=== PATIENT | female | born 1940 | race Caucasian/White ===

== ENCOUNTER 2019-06-23 12:44 | Emergency (ER) | payer BC, MEDICARE ==
[2019-06-23] MEDS ORDERED: Aspirin 81 MG Tab.Chew PO ONE (14:21)
--- NOTE | 2019-06-23 14:25 | EDM.PDOC ---
ED HPI GENERAL MEDICAL PROBLEM - General Chief Complaint: Chest Pain Stated Complaint: CHEST PAIN Time Seen by Provider: 06/23/19 14:15 Source of Information: Reports: Patient, Family, RN Notes Reviewed History Limitations: Reports: No Limitations - History of Present Illness INITIAL COMMENTS - FREE TEXT/NARRATIVE: 78-year-old female presents emergency department today with complaint of chest heaviness, she states started about an hour and a half prior rates the pain may be a 2 out of 10 no diaphoresis no nausea vomiting no shortness of breath. She has no cardiac history no history of tobacco use, past medical history only significant for hypertension controlled Chest Pain Score (Numeric/FACES): 4 - Related Data Allergies Allergy/AdvReac Type Severity Reaction Status Date / Time Penicillins Allergy Severe Anaphylactic Verified 06/23/19 13:23 Shock propoxyphene [From Darvon] Allergy Severe Anaphylactic Verified 06/23/19 13:23 Shock adhesive tape Allergy Rash Verified 06/23/19 13:23 cephalexin [From Keflex] Allergy Other Verified 06/23/19 13:23 metronidazole Allergy Rash Verified 06/23/19 13:23 Sulfa (Sulfonamide Allergy Rash Verified 06/23/19 13:23 Antibiotics) polyethylene glycol AdvReac Nausea and Verified 06/23/19 13:23 [From Golytely] Vomiting polyethylene glycol 3350 AdvReac Nausea and Verified 06/23/19 13:23 [From Golytely] Vomiting potassium chloride AdvReac Nausea and Verified 06/23/19 13:23 [From Golytely] Vomiting sodium [From Golytely] AdvReac Nausea and Verified 06/23/19 13:23 Vomiting sodium bicarbonate AdvReac Nausea and Verified 06/23/19 13:23 [From Golytely] Vomiting sodium chloride AdvReac Nausea and Verified 06/23/19 13:23 [From Golytely] Vomiting sodium sulfate AdvReac Nausea and Verified 06/23/19 13:23 [From Golytely] Vomiting Home Meds: Home Meds Ascorbic Acid [Vitamin C] 500 ng PO DAILY 08/09/16 [History] Aspirin [Adult Low Dose Aspirin EC] 81 mg PO DAILY 08/09/16 [History] Cholecalciferol (Vitamin D3) [Vitamin D3] 1 cap PO DAILY 08/09/16 [History] Gluc/Howard-Msm#2/C/D3/Serafin/Born [[id number]] 1 tab PO DAILY 08/09 [History] Ibuprofen 200 mg PO ASDIRECTED 08/09/16 [History] Loratadine [Claritin] 10 mg PO DAILY 08/09/16 [History] Melatonin 3 mg PO BEDTIME 08/09/16 [History] Multivitamin [Multivitamins] 1 tab PO DAILY 08/09/16 [History] Propranolol [Inderal] 40 mg PO BID 08/09/16 [History] Sour Evans Extract [Tart Evans Extract] 1 tab PO DAILY 08/09/16 [History] Vitamin B Complex [B Complex] 1 tab PO DAILY 08/09/16 [History] Famotidine [Pepcid AC] 20 mg PO ASDIRECTED 11/12/16 [History] hydroCHLOROthiazide [Hydrochlorothiazide] 25 mg PO DAILY 06/23/19 [History] Past Medical History HEENT History: Reports: Impaired Vision Other HEENT History: seasonal allergies Cardiovascular History: Reports: Hypertension Gastrointestinal History: Reports: Bowel Obstruction Genitourinary History: Reports: Chronic Renal Insuffiency Other Genitourinary History: stage 3 [employer] History: Reports: Prolapsed Uterus Oncologic (Cancer) History: Reports: Colon - Infectious Disease History Infectious Disease History: Reports: C-Difficile, Chicken Pox Other Infectious Disease History: surgical incision 8 years ago - Past Surgical History GI Surgical History: Reports: Appendectomy, Cholecystectomy, Colon, Colonoscopy , Hernia Repair/Other, Other (See Below) Other GI Surgeries/Procedures: tumor Female Surgical History: Reports: Hysterectomy Social & Family History - Tobacco Use Smoking Status *Q: Never Smoker - Caffeine Use Caffeine Use: Reports: Coffee - Recreational Drug Use Recreational Drug Use: No - Living Situation & Occupation Living situation: Reports: Occupation: Other ED ROS GENERAL - Review of Systems Review Of Systems: See Below Constitutional: Reports: No Symptoms HEENT: Reports: No Symptoms Respiratory: Reports: No Symptoms Cardiovascular: Reports: Chest Pain GI/Abdominal: Reports: No Symptoms : Reports: No Symptoms Musculoskeletal: Reports: No Symptoms Skin: Reports: No Symptoms ED EXAM, GENERAL - Physical Exam Exam: See Below Exam Limited By: No Limitations General Appearance: Alert, WD/WN, No Apparent Distress Respiratory/Chest: No Respiratory Distress, Lungs Clear, Normal Breath Sounds, No Accessory Muscle Use, Chest Non-Tender Cardiovascular: Regular Rate, Rhythm, No Murmur GI/Abdominal: Soft, Non-Tender Extremities: Normal Inspection, Non-Tender, Pedal Edema (Trace) Course - Vital Signs Last Recorded V/S: Last Vital Signs Temp 97.5 F 06/23/19 13:22 Pulse 66 06/23/19 14:46 Resp 16 06/23/19 14:46 BP 140/66 06/23/19 14:46 Pulse Ox 95 06/23/19 14:46 - Orders/Labs/Meds Orders: Active Orders 24 hr Category Date Time Status Cardiac Monitoring [RC] .As Directed Care 06/23/19 14:21 Active EKG Documentation Completion [RC] ASDIRECTED Care 06/23/19 14:22 Active EKG 12 Lead [EK] Stat Ther 06/23/19 14:22 Ordered Labs: Laboratory Tests 06/23/19 06/23/19 06/23/19 Range/Units 14:28 14:28 16:23 WBC 7.1 (4.5-11.0) K/uL RBC 3.71 (3.30-5.50) M/uL Hgb 12.0 D (12.0-15.0) g/dL Hct 34.9 L (36.0-48.0) % MCV 94 (80-98) fL MCH 32 H (27-31) pg MCHC 34 (32-36) % Plt Count 277 (150-400) K/uL Neut % (Auto) 74 H (36-66) % Lymph % (Auto) 12 L (24-44) % [place] % (Auto) 8 H (2-6) % Eos % (Auto) 5 H (2-4) % Baso % (Auto) 0 (0-1) % Sodium 131 L (140-148) mmol/L Potassium 3.5 L (3.6-5.2) mmol/L Chloride 95 L (100-108) mmol/L Carbon Dioxide 27 (21-32) mmol/L Anion Gap 12.5 (5.0-14.0) mmol/L BUN 18 D (7-18) mg/dL Creatinine 1.1 H D (0.6-1.0) mg/dL Est Cr Clr Drug Dosing 30.28 mL/min Estimated GFR (MDRD) 48 L (>60) Glucose 108 H (74-106) mg/dL Calcium 9.5 (8.5-10.1) mg/dL Total Bilirubin 0.7 D (0.2-1.0) mg/dL AST 24 D (15-37) U/L ALT 26 (12-78) U/L Alkaline Phosphatase 159 H (46-116) U/L CK-MB (CK-2) 3.7 H (0-3.6) mg/mL Troponin I < 0.017 < 0.017 (0.000-0.056) ng/mL Total Protein 6.6 (6.4-8.2) g/dL Albumin 3.5 (3.4-5.0) g/dL Globulin 3.1 (2.3-3.5) g/dL Albumin/Globulin Ratio 1.1 L (1.2-2.2) Meds: Medications Discontinued Medications Generic Name Dose Route Start Last Admin Trade Name Freq PRN Reason Stop Dose Admin Aspirin 324 mg 06/23/19 14:21 06/23/19 14:46 Aspirin PO 06/23/19 14:22 324 mg ONETIME ONE Administration Ondansetron HCl 4 mg 06/23/19 16:51 Zofran Odt PO 06/23/19 16:52 ONETIME ONE - Re-Assessments/Exams Free Text/Narrative Re-Assessment/Exam: 06/23/19 15:22 Heart score is 4 of moderate risk, ED ACS is 16 not low risk Departure - Departure Time of Disposition: 17:50 Disposition: Home, Self-Care 01 Condition: Fair Clinical Impression: Atypical chest pain Referrals: Malick Cisneros [employer] [facility] [Primary Care Provider] - Forms: ED Department Discharge Additional Instructions: Use her Zofran at home if needed, otherwise push fluids, Please followup with your primary care provider in 3-5 days if not better, please call return to the emergency department with worsening of symptoms. - My Orders Last 24 Hours: My Active Orders 06/23/19 14:21 Cardiac Monitoring [RC] .As Directed 06/23/19 14:22 EKG Documentation Completion [RC] ASDIRECTED EKG 12 Lead [EK] Stat - Assessment/Plan Last 24 Hours: My Active Orders 06/23/19 14:21 Cardiac Monitoring [RC] .As Directed 06/23/19 14:22 EKG Documentation Completion [RC] ASDIRECTED EKG 12 Lead [EK] Stat Plan: Assessment Acuity = acute Site and laterality = atypical chest pain Etiology = unclear etiology Manifestations = none Location of injury = Home Lab values = CBC unremarkable, sodium low at 131 consistent hyponatremia, potassium low at 3.5 consistent hypokalemia creatinine elevated 1.1 consistent with chronic renal failure stage G IIIa troponin was negative 2 Plan She had 1 bout of emesis while in the ED which then relieved her chest discomfort and pressure, she has no nausea at the time of discharge no chest discomfort or pressure at the time of discharge. Recommend follow-up with primary care in the next 3-5 days for reevaluation This note was dictated using [employer] voice recognition software please call with any questions on syntax or grammar.
[2019-06-23 14:47] VITALS: BP 140/66; PULSE 66
--- NOTE | 2019-06-23 16:16 | CRLCR ---
INDICATION: Chest Pain TECHNIQUE: Chest radiograph 2 views COMPARISON: 11/22/2016 FINDINGS: Mediastinum: The mediastinum is normal in appearance. The heart silhouette is normal in size and morphology. Lung: Both lungs are unremarkable in appearance. No sign of pleural effusion seen. No pneumothorax is identified. Bone and Soft tissue: Unremarkable for age. IMPRESSION: 1. No acute cardiopulmonary disease is seen. Dictated by: Aakash Boudreaux MD @ 06/23/2019 16:14:44 (Electronically Signed)
[2019-06-23] MEDS ORDERED: Ondansetron 4 MG Tab.DIS PO ONE (16:51)
== END 2019-06-23 18:10 | disposition home or self-care (01) ==
LOC: JP.ED 12:44
DX: R07.89 Other chest pain (principal); I12.9 Hypertensive chronic kidney disease with stage 1 through stage 4 chronic kidney disease, or unspecified chronic kidney disease; N18.3 Chronic kidney disease, stage 3 (moderate); Z79.899 Other long term (current) drug therapy; Z79.82 Long term (current) use of aspirin; Z88.8 Allergy status to other drugs, medicaments and biological substances; Z90.49 Acquired absence of other specified parts of digestive tract; Z90.710 Acquired absence of both cervix and uterus; Z88.0 Allergy status to penicillin; Z88.1 Allergy status to other antibiotic agents; Z88.2 Allergy status to sulfonamides; Z91.048 Other nonmedicinal substance allergy status
CPT/HCPCS: 36415; 71046; 80053; 82553; 84484; 85025; 93005; 99285; A9270; 93010; 99284

== ENCOUNTER 2023-05-28 09:34 | Emergency (ER) | payer MEDICARE ==
[2023-05-28] MEDS ORDERED: Diphtheria,Pertussis(Acell),Tetanus Vaccine 0.5 ML Syringe IM ONE (11:08)
[2023-05-28 11:37] VITALS: BP 136/61; PULSE 65
[2023-05-28] MEDS ORDERED: Triamcinolone Acetonide 40 MG/ML 1 ML SDV IM PRN (12:06)
== END 2023-05-28 12:45 | disposition home or self-care (01) ==
LOC: JP.ED 09:34
DX: M54.32 Sciatica, left side (principal); I12.9 Hypertensive chronic kidney disease with stage 1 through stage 4 chronic kidney disease, or unspecified chronic kidney disease; N18.9 Chronic kidney disease, unspecified; Z88.0 Allergy status to penicillin; Z88.8 Allergy status to other drugs, medicaments and biological substances; Z91.048 Other nonmedicinal substance allergy status; Z88.1 Allergy status to other antibiotic agents; Z88.2 Allergy status to sulfonamides; Z91.041 Radiographic dye allergy status; Z79.899 Other long term (current) drug therapy; Z79.82 Long term (current) use of aspirin
CPT/HCPCS: 93971; 96372; 99283; J3301